=== PATIENT | female | born 1980 | race Caucasian/White ===

== ENCOUNTER 2019-12-31 23:26 | Emergency (ER) | payer OTHER ==
[~2019-12-31] VITALS: Ht 162.6 cm; Wt 82.7 kg
[2020-01-01 00:57] LABS: BASO # 0.1 10^3/uL (0.0-0.2); BASO % 0.6 % (0.0-1.0); EOS # 0.1 10^3/uL (0.0-0.5); EOS % 1.5 % (0.0-3.0); HEMATOCRIT 42.2 % (36.0-47.0); HEMOGLOBIN 13.8 g/dl (12.0-15.5); LYMPH # 2.8 10^3/uL (1.5-5.0); LYMPH % 32.9 % (24.0-44.0); MEAN CORPUSCULAR HEMOGLOBIN 29.3 pg (27.0-33.0); MEAN CORPUSCULAR HGB CONC 32.7 g/dl (32.0-36.5); MEAN CORPUSCULAR VOLUME 89.6 fl (80.0-96.0); MONO # 0.5 10^3/uL (0.0-0.8); MONO % 5.9 % (0.0-5.0); NEUTROPHILS # 5.1 10^3/uL (1.5-8.5); NEUTROPHILS % 58.9 % (36.0-66.0); PLATELET COUNT, AUTOMATED 218 10^3/uL (150-450); RED BLOOD COUNT 4.71 10^6/uL (4.00-5.40); WHITE BLOOD COUNT 8.6 10^3/uL (4.0-10.0)
[2020-01-01 01:02] LABS: ALT/SGPT 36 U/L (12-78); BILIRUBIN,TOTAL 0.4 MG/DL (0.2-1.0); BLOOD UREA NITROGEN 23 MG/DL (7-18); CALCIUM LEVEL 9.3 MG/DL (8.5-10.1); CARBON DIOXIDE LEVEL 24 MEQ/L (21-32); CHLORIDE LEVEL 110 MEQ/L (98-107); CREATININE FOR GFR 0.68 MG/DL (0.55-1.30); GLOMERULAR FILTRATION RATE > 60.0 (>58); GLUCOSE, FASTING 101 MG/DL (70-100); POTASSIUM SERUM 3.8 MEQ/L (3.5-5.1); SODIUM LEVEL 143 MEQ/L (136-145); TOTAL PROTEIN 7.2 GM/DL (6.4-8.2)
[2020-01-01 02:09] VITALS: BP 165/86
[2020-01-01 03:32] LABS: HIV SCREEN CENTAUR EXPOSED NEGATIVE (NEGATIVE)
[2020-01-03 10:29] LABS: HEPATITIS B SURFACE ANTIBODY NEGATIVE (POSITIVE)
[2020-01-03 10:40] LABS: HEPATITIS B SURFACE ANTIGEN NEGATIVE (NEGATIVE)
[2020-01-03 11:08] LABS: HEPATITIS C VIRUS ABY INDEX 0.2 INDEX (<0.8)
== END 2020-01-01 02:13 | disposition home or self-care (01) ==
LOC: M ED 23:26
DX: Z77.21 Contact with and (suspected) exposure to potentially hazardous body fluids (principal); S61.238A Puncture wound without foreign body of other finger without damage to nail, initial encounter; W46.1XXA Contact with contaminated hypodermic needle, initial encounter; Y92.128 Other place in nursing home as the place of occurrence of the external cause; Y93.F9 Activity, other caregiving; Y99.0 Civilian activity done for income or pay

== ENCOUNTER → 2020-01-28 | Outpatient (CLI) | payer BC ==
--- NOTE | 2020-01-29 08:59 | REP ---
BILATERAL MAMMOGRAM WITH 3D TOMOSYNTHESIS AND BILATERAL BREAST ULTRASOUND: This is the patient's baseline exam. There is a history of a palpable lump left breast for 3 weeks at the 12-o'clock position. That areas is marked on the skin with a triangular marker and additional spot compression views are performed. There is no family history of breast cancer. Tyrer-Cuzick lifetime risk of breast cancer 9.1%. [place] breast density C. Moderate fibroglandular tissue is scattered bilaterally. Moderately heterogenous fibroglandular tissue diminishes the sensitivity of the mammogram. No mammographic abnormality is seen in the 12-o'clock region of the left breast. There does appear to be a partially visualized nodule in the region of 3-o'clock left breast oval in shape and about 12 mm in diameter. This is somewhat posteriorly located. At 6-o'clock position, there appears to be a relatively smoothly marginated nodule measuring 10 mm in diameter, approximately 5 cm from the nipple. On the right, at about 11-o'clock position, 6 cm from the nipple, there is a 7 mm smoothly marginated nodule. In the region of 12-o'clock, more posteriorly at about 7 cm from the nipple, there appears to be a 7 mm nodular density only seen on the CC views. In the region of 1-o'clock right breast about 5 cm from the nipple, there is a smoothly marginated nodular opacity which is partially visualized located about 5 cm from the nipple. No clustered microcalcifications are seen bilaterally. Real-time sonographic evaluation of bilateral breasts are performed at the site of the nodules identified bilaterally. At the site of the palpable lump at 12-o'clock position left breast, there is a simple cyst, which measures 11 x 9 x 10 mm. At the site of the nodule at the 6-o'clock position of the left breast, there is an oval heterogenous nodule which appears to contain both cystic and solid components. It measures 8 x 5 x 10 mm. In the 3-o'clock region of the left breast, there appears to be a somewhat complex cyst with internal septations, appearing benign, measuring 9 x 7 x 13 mm. On the right, in the region of 11-o'clock, there is a complex cyst with thin septations measuring 7 mm in diameter corresponding to the nodule at that location. At 12-o'clock position more posteriorly, there is a complex cystic and solid nodule measuring 7 mm in diameter. At 1-o'clock position at the site of a partially visualized well-circumscribed nodule, there is a complex cystic oval nodule measuring 11 x 7 x 15 mm. This contains multiple internal septations with some blood flow in the periphery. IMPRESSION: BIRADS 4: BI-RADS/ACR category 4 mammogram. Suspicious Abnormality - biopsy should be considered. ACR 4 suspicious. There is mammographic evidence of bilateral nodules as discussed in detail above. No suspicious clusters of microcalcifications. There is no mammographic evidence of a mass at the site of the palpable lump at 12-o'clock position left breast. By ultrasound at the site of the palpable lump, there is a simple benign cyst. At the 6-o'clock position of the left breast is a complex cystic and solid nodule for which ultrasound-guided sampling is recommended. The right breast shows two complex cystic and solid nodules for which ultrasound-guided sampling is recommended, one at 12-o'clock position 7 cm from the nipple with an maximum diameter of 7 mm and the other at 1-o'clock position 5 cm from the nipple measuring 11 x 7 x 15 mm. This mammogram was interpreted with the aid of an FDA-approved computer-aided detection system. A. Negative x-ray reports should not delay biopsy if a dominant or clinically suspicious mass is present. B. Four to eight percent of cancers are not identified by x-ray. C. Adenosis and dense breasts may obscure an underlying neoplasm. The patient states she/he had a clinical breast exam in January 2020. The patient letter being requested is [id number].
== END ==
LOC: M WHC 10:35
PROVIDERS: ATTEND Nurse Practitioner Family
DX: N63.20 Unspecified lump in the left breast, unspecified quadrant (principal); N63.10 Unspecified lump in the right breast, unspecified quadrant
CPT/HCPCS: 76642; 77066; G0279

== ENCOUNTER → 2024-08-26 | Outpatient (CLI) | payer SELFPAY | LOC: M WHC 10:33 | PROVIDERS: ATTEND Advanced Practice Midwife | DX: Z12.31 Encounter for screening mammogram for malignant neoplasm of breast (principal) ==

== ENCOUNTER → 2024-08-26 | Outpatient (REF) | payer BC, SELFPAY ==
[2024-09-07 14:06] LABS: HPV APTIMA Not Detected (Not Detected)
== END ==
LOC: M SFHCWAGY 15:06
PROVIDERS: ATTEND Advanced Practice Midwife
DX: Z12.31 Encounter for screening mammogram for malignant neoplasm of breast (principal); R92.333 Mammographic heterogeneous density, bilateral breasts; Z12.4 Encounter for screening for malignant neoplasm of cervix
CPT/HCPCS: 87624; G0123

== ENCOUNTER → 2024-09-03 | Outpatient (REF) | payer BC, SELFPAY | LOC: M PLALAB 16:25 | PROVIDERS: ATTEND Advanced Practice Midwife | DX: Z53.9 Procedure and treatment not carried out, unspecified reason (principal) ==